=== PATIENT | female | born 1940 | race Asian ===

== ENCOUNTER 2017-08-29 08:34 | Day surgery (SDC) | payer OTHER ==
[~2017-08-29 08:34] MED LIST: PROPOFOL 200 MG INJ
[2017-08-29] MEDS ORDERED: SOD CHLORIDE 0.9% 1,000 ML IV (10:30)
[2017-08-29] MEDS: PREDNISOLONE ACET 1% 5 ML OPH OPER (10:48)
[2017-08-29] MEDS: MOXIFLOXACIN 0.5% 3 ML OPH OPER (10:48)
[2017-08-29] MEDS: PROPARACAINE 0.5% 15 ML OPH OPER (10:48)
[2017-08-29] MEDS ORDERED: MIDAZOLAM 1 MG/ML 2 ML INJ (11:37)
[2017-08-29] MEDS ORDERED: BUPIVACAINE 0.5% (SDV) 30 ML INJ (11:38)
[2017-08-29] MEDS: LABETALOL HCL 20MG INJ IV (12:56)
[2017-08-29] MEDS ORDERED: MITOMYCIN 5 MG INJ OP (13:00)
[2017-08-29] MEDS ORDERED: FENTAnyl 50 MCG/ML VIAL IV (13:00)
[2017-08-29] MEDS ORDERED: ONDANSETRON 4 MG INJ IV (13:00)
== END 2017-08-29 13:40 | disposition home or self-care (01) ==
LOC: SDS 08:34
DX: H11.001 Unspecified pterygium of right eye (principal); I10 Essential (primary) hypertension; E78.5 Hyperlipidemia, unspecified
CPT/HCPCS: 65426; 88305